=== PATIENT | male | born 2000 | race Caucasian/White ===

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

== ENCOUNTER 2022-06-22 03:53 | Emergency (ER) | payer BC | END 2022-06-22 05:00 | disposition home or self-care (01) | LOC: ERS 03:53 | DX: F10.129 Alcohol abuse with intoxication, unspecified (principal); Y90.6 Blood alcohol level of 120-199 mg/100 ml | CPT/HCPCS: 80307; 99284 ==